=== PATIENT | female | born 1945 | race Caucasian/White ===

== ENCOUNTER 2021-01-21 22:44 | Inpatient (IN) | payer OTHER, BC ==
[2021-01-22 00:39] LABS: BASO % 0.7 % (0-2.0); EOS % 4.1 % (0-4.5); HEMATOCRIT 40.3 % (32.4-45.2); HEMOGLOBIN 13.2 GM/dL (10.7-15.3); LYMPH % 27.9 % (8-40); MCH 32.9 pg (25.7-33.7); MCHC 32.9 g/dl (32.0-36.0); MEAN CELL VOLUME 99.9 fl (80-96); MEAN PLT VOLUME 8.3 fl (7.5-11.1); MONO % 8.8 % (3.8-10.2); NEUT % 58.5 % (42.8-82.8); PLATELET COUNT 341 K/MM3 (134-434); RBC 4.03 M/mm3 (3.60-5.2); RDW 14.3 % (11.6-15.6); WHITE BLOOD COUNT 7.4 K/mm3 (4.0-10.0)
[2021-01-22 00:45] LABS: INR 1.03 (0.83-1.09); PROTHROMBIN TIME (PATIENT) 12.5 SEC (9.7-13.0)
[2021-01-22 01:03] LABS: CHLORIDE 108 mmol/L (98-107); SODIUM 142 mmol/L (136-145)
[2021-01-22 01:05] LABS: ALBUMIN 3.6 g/dl (3.4-5.0); ANION GAP 7 MMOL/L (8-16); BLOOD UREA NITROGEN 15.9 mg/dL (7-18); CALCIUM 9.2 mg/dL (8.5-10.1); CO2 27 mmol/L (21-32); GLUCOSE,RANDOM 88 mg/dL (74-106); MAGNESIUM 2.4 mg/dL (1.8-2.4)
[2021-01-22 01:08] LABS: SGOT/AST 18 U/L (15-37); SGPT/ALT 22 U/L (13-61)
[2021-01-22 01:10] LABS: BILIRUBIN,TOTAL 0.2 mg/dL (0.2-1); TOT PROT 6.9 g/dl (6.4-8.2)
[2021-01-22 01:11] LABS: ALK PHOS 81 U/L (45-117)
[2021-01-22] MEDS ORDERED: ACETAMINOPHEN 500 MG TABLET (FP) PO PRN (03:43)
[2021-01-22] MEDS ORDERED: MELATONIN 5 MG TABLETS PO PRN (03:45)
[2021-01-22] MEDS ORDERED: SENNOSIDES 8.6MG TABLET (FP) PO PRN (08:45)
[2021-01-22] MEDS ORDERED: POLYETHYLENE GLYCOL 3350 119 GM BTL PO PRN (08:46)
[2021-01-22] MEDS: ENOXAPARIN NA (PORCINE) 40 MG/0.4 ML DISP.SYRIN SQ SCH (10:34)
[2021-01-22] MEDS: PANTOPRAZOLE 40 MG TABLET PO SCH (10:34)
[2021-01-22] MEDS: ESCITALOPRAM OXALATE 20 MG TABLET PO SCH (10:35)
[2021-01-22] MEDS: LISINOPRIL 5 MG TABLET PO SCH (10:35)
[2021-01-22 11:02] VITALS: BMI 21.6
[2021-01-22] MEDS ORDERED: LOPERAMIDE HCL 2 MG CAPSULE PO PRN (16:44)
[2021-01-22] MEDS ORDERED: PT OWN MED DRAWER 7, Y5N ONE (17:30)
[2021-01-22] MEDS ORDERED: DONEPEZIL HCL 5 MG TABLET (FP) PO SCH (22:00)
[2021-01-23 07:40] LABS: CHOLESTEROL 186 mg/dL (50-200); LDL CHOLESTEROL (ONLY SJRH) 94 mg/dL (5-100)
[2021-01-23 07:41] LABS: HDL CHOLESTEROL 72 mg/dL (40-60); TRIGLYCERIDES 69 mg/dL (0-150)
[2021-01-23 09:54] VITALS: BP 105/54; PULSE 61; TEMP 97.8
[2021-01-23] MEDS: PANTOPRAZOLE 40 MG TABLET PO SCH (10:29)
[2021-01-23] MEDS: ENOXAPARIN NA (PORCINE) 40 MG/0.4 ML DISP.SYRIN SQ SCH (10:29)
[2021-01-23] MEDS: LISINOPRIL 5 MG TABLET PO SCH (10:29)
[2021-01-23] MEDS: ESCITALOPRAM OXALATE 20 MG TABLET PO SCH (10:29)
== END 2021-01-23 14:00 | disposition home or self-care (01) | DRG 312 ==
LOC: JER 22:44 → JERBED 01-22 03:11 → J4W 01-22 09:58
PROVIDERS: ADMIT Internal Medicine; ATTEND Internal Medicine
DX: R55 Syncope and collapse (principal); S06.0X9A Concussion with loss of consciousness of unspecified duration, initial encounter; F03.90 Unspecified dementia, unspecified severity, without behavioral disturbance, psychotic disturbance, mood disturbance, and anxiety; I10 Essential (primary) hypertension; D64.9 Anemia, unspecified; M62.81 Muscle weakness (generalized); K59.09 Other constipation; R26.81 Unsteadiness on feet; R29.6 Repeated falls; W18.39XA Other fall on same level, initial encounter; Y92.89 Other specified places as the place of occurrence of the external cause
CPT/HCPCS: 36415; 70450-TC; 71045-TC-FY; 72125-TC; 72170-TC-FY; 80053; 80061; 82550; 83721; 83735; 84484; 85025; 85610; 86850; 86900; 86901; 93005; 93010; 93306-TC; 93880-TC; 97116-GP; 97161-GP; 99285-25; C9803; U0003; U0005